=== PATIENT | female | born 1980 | race Caucasian/White ===

== ENCOUNTER 2016-12-09 09:55 | Inpatient (IN) ==
[2016-12-09] MEDS ORDERED: FAMOTIDINE PREMIX 20 MG/50 ML BAG IV ONE (10:08)
[2016-12-09] MEDS ORDERED: NOZIN NASAL SWAB NAS ONE (10:08)
[2016-12-09] MEDS ORDERED: CITRIC ACID/SODIUM CITRATE 30ml PO ONE (10:08)
[2016-12-09] MEDS ORDERED: CEFAZOLIN PREMIX (MC ONLY) 2 GM/50 ML BAG IV ONE (10:08)
[2016-12-09] MEDS: LR 1,000 ML IV SCH ×2 (10:54→12:11)
--- NOTE | 2016-12-09 11:00 | Anesthesia Preoperative Report ---
Anesthesia Epidural/Spinal Rec - Date and Time Date: 12/09/16 Preoperative Diagnosis: Term Procedure: Plan: Spinal - Vital Signs NPO since: [place] /Para: G: P: - Medictaions & Allergies Inpatient Medications: Current Medications Lactated Ringer's (Lactated Ringers) 1,000 mls @ 150 mls/hr IV .[id number] [facility] Last Admin: 12/09/16 10:54 Dose: 150 mls/hr Isopropyl Alcohol (Nozin Nasal Swab) 1 each INGA 0600,1400,2200 [facility] Allergies/Adverse Reactions: Allergies Allergy/AdvReac Type Severity Reaction Status Date / Time No Known Allergies Allergy Unverified 02/15/12 10:15 - Medical History Respiratory: DENIES: Asthma, Bronchitis, Chronic Obstructive Pulmonary Disease (COPD), Dyspnea, Orthopnea, Pulmonary Embolism, Pneumonia, Upper Respiratory Infection, Pulmonary Edema, Sleep Apnea, Tuberculosis, Other Cardiovascular: DENIES: Abnormal EKG, Angina, Arrhythmia, Congestive Heart Failure, Coronary Artery Disease, Heart Murmur, Hypertension, Hypotension, High Cholesterol, Myocardial Infarction, Rheumatic Fever, Valvular Heart Disease, Other Gastrointestional: Reports: Other (Obesity) Neuro/Musculoskeletal: Denies: HX.MS.OSAR, Back Problems, Cerebrovascular Accident, Depression, Headaches, Loss of Consciousness, Muscle Weakness, Neuromuscular Disorder, Paralysis, Paresthesia, Syncope, Seizures, Other Renal/Endocrine: DENIES: Diabetes Mellitus Type 1, Diabetes Mellitus Type 2, Renal Failure, Dialysis, Thyroid Disease, Weight Loss, Weight Gain, Other Other History: Reports: Now - Surgical History Reproductive Surgery/Treatment: Reports: Section (x2) Anesthesia Reactions: None Hx Family Anesthesia Reaction: No History of Motion Sickness: No - Social History Smoking Status: Never smoker Substance Use Type: does not use - Pertinent Findings Lab Data: CBC and BMP 12/09/16 10:41 EKG Rhythm: Normal Sinus Rhythm - Physical Exam Respiratory Exam: lungs clear, bilateral breath sounds equal Cardiovascular Exam: regular rate and rhythm, no murmur - Airway Assessment Mallampati Score: III TMD: 2 Fingerbreadths Neck Extension: fair Teeth: other (small mouth opening) Overall Assessment: may be difficult intubation - ASA ASA Score: 2 - Discussion Discussion: Discussed risks/options/alternatives of anesthesia and questions answered. Patient consents. Nursing pain assessment noted. Anesthesia Discussion: family member (multiple) Attestation Statement: Prior to the delivery of any anesthetic medication, I examined the patient, developed the plan, obtained the patient's consent and discussed the risk and benefits of the procedure with the patient/guardian.
[2016-12-09] MEDS ORDERED: FentaNYL 100 MCG/2 ML INJECTION ONE (11:37)
[2016-12-09] MEDS ORDERED: MORPHINE SULFATE PF 5mg/10ml INJ (Duramorph) ONE (11:37)
[2016-12-09] MEDS ORDERED: OXYTOCIN DRIP 30 UNIT/500 ML ML IV SCH ×2 (11:45→13:45)
[2016-12-09] MEDS ORDERED: HYDROCORTISONE 2.5% CREAM 30gm RECTALLY PRN (13:41)
[2016-12-09] MEDS ORDERED: SALINE FLUSH 10ml SYRINGE IVF PRN (13:41)
[2016-12-09] MEDS ORDERED: DiphenhydrAMINE 25 MG CAPSULE PO PRN (13:41)
[2016-12-09] MEDS ORDERED: ACETAMINOPHEN 500 MG TABLET PO PRN (13:41)
[2016-12-09] MEDS ORDERED: SIMETHICONE 80 MG CHEWABLE TABLET PO PRN (13:41)
[2016-12-09] MEDS ORDERED: HYDROCODONE/APAP 5mg/325mg TABLET PO PRN (13:41)
--- NOTE | 2016-12-09 13:47 | Operative Note ---
Operative Note - Date of Operation Date of Operation: 12/09/16 - General : 4 Para: 2 Estimated or Known Gestational Age (weeks): 39 Estimated or Known Gestational Age (days): 0 - Preoperative Diagnosis Previous Section, Desires sterilization - Postoperative Diagnosis same as preoperative - Procedure Repeat, Low-transverse , Tubal Ligation - Surgeon Surgeon: Surgeon: Senia Matson MD - Senior Payroll Administrator Tiffany Crowe MD - Anesthesia Anesthesia Provider: Clint Holland CRNA Anesthesia Type: spinal - Complications Complications: None - Estimated Blood Loss Estimated Blood Loss:: 700 cc - Findings Findings: viable female, clear fluids, normal uterus, normal adenexa - APGARS : - Weight 3.69 kg - [place] Name Name: Maritza Blair - Indications Indications: Prior C/S x 2 at term gestation - Description of Procedure Description of Procedure: The patient was taken to the operating room where adequate anesthesia as described above was obtained. A vertical skin incision was made and carried down to the fascia with the scalpel, this was extended 3 centimeters nena- umbilically due to patient's body habitus. Hemostasis was accomplished along the way with Bovie cautery. The fascia was incised and the rectus muscles in the midline. The peritoneum was entered and incised superiorly and inferiorly taking care to avoid the bowel and bladder. A bladder blade was inserted and a bladder flap was created. A low transverse uterine incision was made with the scalpel and bluntly stretched and extended laterally. The infant was delivered in the cephalic position. Mouth and nares were bulb suctioned, the cord was clamped and cut, and the was handed to the awaiting pediatric nursing staff. The placenta was delivered and the uterine cavity examined. The uterine incision was closed in a running-lock fashion with 0- monocryl. Hemostasis was noted. Attention was then turned to the left fallopian tube which was grasped with a Warren clamp. The midsegment was grasped, a hemostat placed through an avascular portion of the mesosalpinx, the jaws opened to separate mesosalpinx from tubal segment to be resected, and two 0- chromic and 2-0 silk ties were brought through the resulting defect. A 4 cm segment of tube was then doubly ligated and resected with the resulting specimen sent to Pathology. Hemostasis was confirmed. A similar procedure was performed on the other fallopian tube, resecting a 4 cm segment. The bladder flap was not reapproximated. The peritoneal layer was closed with 2-0 vicryl suture. The fascia was closed with two separate 0-vicryl suture meeting in the midline and the subcutaneous tissue was reapproximated with 2-0 vicryl suture. The skin was closed with 4-0 vicryl in subcuticular fashion and a sterile dressing was applied. The patient taken to the recovery room in satisfactory condition. Needle, sponge, and instrument counts were correct. There were no surgical or anesthetic complications.
[2016-12-09] MEDS ORDERED: DiphenhydrAMINE 50 MG/ML INJECTION IVP PRN (13:53)
[2016-12-09] MEDS ORDERED: NALOXONE 2 MG/2 ML INJECTION PFS IVP PRN (13:53)
[2016-12-09] MEDS ORDERED: ONDANSETRON 4 MG/2 ML INJECTION IVP PRN (13:53)
[2016-12-09] MEDS ORDERED: NOZIN NASAL SWAB NAS SCH (14:00)
[2016-12-09] MEDS: D5LR 1,000 ML IV SCH (14:07)
[2016-12-09] MEDS: IBUPROFEN 800 MG TABLET PO PRN (15:33)
--- NOTE | 2016-12-09 17:28 | OB/GYN Progress Note ---
OB-PP Progress Note - General POD:: Post Op Check Maternal Group B Strep: Positive Maternal blood type: B+ Maternal Rubella Status: Immune - Subjective Date: 12/09/16 Lochia: Minimal Pain: contolled Voiding: ragsdale still in place Nausea or Vomiting Present: No - Objective Vital Signs: Last Vital Signs Temp 98.3 F 12/09/16 10:40 Pulse 73 12/09/16 10:40 Resp 18 12/09/16 10:40 BP 130/67 12/09/16 10:40 Pulse Ox 98 12/09/16 10:40 General: alert and oriented Abdomen: fundus firm, non-tender, no rebound, no guarding Incision: normal, dry, dressed Laboratory: Laboratory Results - last 24 hr 12/09/16 12/09/16 10:41 10:41 WBC 8.5 RBC 3.41 L Hgb 11.2 L Hct 34.8 L MCV 102.1 H MCH 32.8 MCHC 32.2 RDW Std Deviation 53.8 H Plt Count 245 MPV 10.8 Immature Gran % (Auto) 0.1 Neut % (Auto) 75.5 H Lymph % (Auto) 18.3 L [place] % (Auto) 5.3 Eos % (Auto) 0.6 Baso % (Auto) 0.2 Neut # 6.4 Lymph # 1.6 [place] # 0.5 Eos # 0.1 Baso # 0.0 Abs Immat Gran (auto) 0.01 Blood Type B Positive Antibody Screen Negative - Assessment Assessment: SP, Repeat C/S, Tubal Ligation - Plan Plan: routine care, continue PNV
--- NOTE | 2016-12-09 19:11 | Anesthesia Postoperative Note ---
- Date and Time Date: 12/09/16 Time: 19:10 - Status Patient Participated in Evaluation: Patient Participated in Person Vital Signs: Temperature 98.3 F 12/09/16 18:09 Pulse Rate 82 12/09/16 18:09 Respiratory Rate 18 12/09/16 18:09 Blood Pressure 107/58 12/09/16 18:09 Pulse Oximetry 95 12/09/16 18:09 Oxygen Delivery Method Room Air Respiratory Function: Airway Patent, Regular Respirations Cardiovascular Function: Regular Pulse Mental Status: Alert and Oriented Pain Intensity: 0 Hydration: Taking PO Fluids Complications During Recover: None Apparent Post Anesthesia Care Notes: moves bilateral lower extremeties - Follow-Up Instructions Instructions: Per Surgeon
[2016-12-09] MEDS: HYDROCODONE/APAP 7.5 MG/325 MG TABLET PO PRN (20:38)
[2016-12-09] MEDS: SIMETHICONE 80 MG CHEWABLE TABLET PO SCH (20:38)
[2016-12-10] MEDS: SIMETHICONE 80 MG CHEWABLE TABLET PO SCH ×5 (01:01→21:57)
[2016-12-10] MEDS: HYDROCODONE/APAP 7.5 MG/325 MG TABLET PO PRN ×3 (01:02→18:41)
[2016-12-10] MEDS: IBUPROFEN 800 MG TABLET PO PRN ×3 (01:02→17:21)
[2016-12-10] MEDS: D5LR 1,000 ML IV SCH (01:15)
[2016-12-10] MEDS: DOCUSATE CALCIUM 240 MG CAPSULE PO SCH (09:01)
--- NOTE | 2016-12-10 09:01 | OB/GYN Progress Note ---
OB-PP Progress Note - General PPD1 Maternal Group B Strep: Positive Maternal Rubella Status: Immune - Subjective Date: 12/10/16 Lochia: Minimal Pain: contolled Voiding: ragsdale still in place Nausea or Vomiting Present: No - Objective Vital Signs: Last Vital Signs Temp 98.1 F 12/10/16 05:00 Pulse 75 12/10/16 05:00 Resp 16 12/10/16 05:00 BP 109/64 12/10/16 05:00 Pulse Ox 98 12/10/16 05:00 Urine Output: good General: alert and oriented Abdomen: fundus firm, non-tender, no rebound, no guarding Incision: normal, intact Laboratory: Laboratory Results - last 24 hr 12/09/16 12/09/16 12/10/16 10:41 10:41 05:59 WBC 8.5 9.4 RBC 3.41 L 3.15 L Hgb 11.2 L 10.4 L Hct 34.8 L 32.5 L MCV 102.1 H 103.2 H MCH 32.8 33.0 MCHC 32.2 32.0 RDW Std Deviation 53.8 H 54.8 H Plt Count 245 204 MPV 10.8 10.5 Immature Gran % (Auto) 0.1 Neut % (Auto) 75.5 H Lymph % (Auto) 18.3 L [place] % (Auto) 5.3 Eos % (Auto) 0.6 Baso % (Auto) 0.2 Neut # 6.4 Lymph # 1.6 [place] # 0.5 Eos # 0.1 Baso # 0.0 Abs Immat Gran (auto) 0.01 Blood Type B Positive Antibody Screen Negative - Assessment Assessment: SP, Repeat C/S, Tubal Ligation - Plan Plan: routine care, continue PNV (remove ragsdale this AM, encourage ambulation)
[2016-12-11] MEDS ORDERED: MAG-AL + SIM ORAL LIQUID 30ml PO PRN (01:28)
[2016-12-11] MEDS: IBUPROFEN 800 MG TABLET PO PRN ×2 (01:31→13:14)
[2016-12-11] MEDS: HYDROCODONE/APAP 7.5 MG/325 MG TABLET PO PRN (08:13)
[2016-12-11] MEDS: DOCUSATE CALCIUM 240 MG CAPSULE PO SCH (08:14)
[2016-12-11] MEDS ORDERED: OXYCODONE/APAP 7.5 MG/325 MG TABLET PO PRN (09:33)
[2016-12-11] MEDS ORDERED: ONDANSETRON ODT 4 MG TABLET PO PRN (09:33)
--- NOTE | 2016-12-11 09:35 | OB/GYN Progress Note ---
OB-PP Progress Note - General PPD1, PPD2 Maternal Group B Strep: Positive Maternal blood type: B+ Maternal Rubella Status: Immune - Subjective Date: 12/11/16 Lochia: Minimal Pain: contolled Voiding: voiding Nausea or Vomiting Present: No (passing flatus) - Objective Vital Signs: Last Vital Signs Temp 99.3 F 12/11/16 04:53 Pulse 78 12/11/16 04:53 Resp 14 12/11/16 04:53 BP 126/70 12/11/16 04:53 Pulse Ox 93 12/11/16 04:53 General: alert and oriented Abdomen: fundus firm, non-tender, no rebound, no guarding Incision: normal, intact Extremities: non-tender - Assessment Assessment: SP, Repeat C/S, Tubal Ligation - Plan Plan: routine care, discharge home, continue PNV
--- NOTE | 2016-12-11 09:41 | Discharge Summary ---
Discharge Plan - Med Rec/Dispo Prescriptions: New Oxycodone/APAP 7.5/325 [Percocet 7.5/325] 1 tab PO Q6H PRN #30 tablet PRN Reason: Pain Docusate Calcium [Surfak] 240 mg PO DAILY #30 capsule Ibuprofen [Motrin] 800 mg PO Q8H PRN #60 tablet PRN Reason: Pain Continue Vit No.78/Iron/FA [Prenatabs FA Tablet] 1 each PO DAILY - Disposition 01 Discharged Home, Self-Care
[2016-12-11] MEDS: SIMETHICONE 80 MG CHEWABLE TABLET PO SCH ×2 (13:13→13:14)
== END 2016-12-11 14:51 | disposition home or self-care (01) | DRG 766 ==
LOC: MC 09:55
PROVIDERS: ADMIT Obstetrics & Gynecology; ATTEND Obstetrics & Gynecology